=== PATIENT | female | born 1965 | race Caucasian/White ===

== ENCOUNTER → 2017-10-09 | Emergency (ER) | payer OTHER ==
[~2017-10-09] VITALS: Ht 162.6 cm; Wt 70.8 kg
[~2017-10-09] MED LIST: ESTRACE0.5 MG PO; LORATADINE10 MG PO; PREDNISONE20 MG PO; PROVENTIL HFA6.7 GM INH
--- NOTE | 2017-10-10 21:46 | EKG ---
[facility] [address] [facility] [place] [address] Signed Normal sinus rhythm Normal ECG No previous ECGs available Confirmed by MACO POSADA MD ([id number]) on 10/10/2017 9:46:14 PM Electronically Signed By: MACO POSADA MD 10/10/17 2146 PATIENT NAME: BRET OLGUIN APRIL Electrocardiogram DATE OF : 69 PHYSICIAN: MACO POSADA MD REPORT #: [id number] REPORT IS CONFIDENTIAL AND NOT TO BE RELEASED WITHOUT AUTHORIZATION
== END ==
LOC: ED 16:10
DX: J45.909 Unspecified asthma, uncomplicated (principal); R09.81 Nasal congestion; Z90.710 Acquired absence of both cervix and uterus; Z98.890 Other specified postprocedural states; Z79.899 Other long term (current) drug therapy
CPT/HCPCS: 71020; 80053; 83880; 84484; 85025; 85379; 93005; 93010; 94640; 96361; 96374; 96375; 99284; J2405; J2930; J7030

== ENCOUNTER 2019-01-24 11:48 | Day surgery (SDC) | payer OTHER ==
[~2019-01-24] VITALS: Ht 162.6 cm; Wt 76.7 kg
--- NOTE | 2019-01-24 14:00 | NUR ---
01/24/19 1400 Sheets,Rosalia 1353 PT ARRIVED TO PACU ON 4L VIA NC, PT PASSING GAS/AIR. PT DRWOSY AND EYE OPEN OFF AND ON. RESP EVEN AND UNLABORED. 1358 MD AT BEDSIDE AND PT TALKING TO MD. PT DENIES PAIN AND NAUSEA.
--- NOTE | 2019-01-24 14:53 | NUR ---
PT RETURNS TO DS ROOM 6 AFTER IVS COLONOSCOPY AFTER RECURRENT NAUSEA/VOMITING. PT RECEIVED 6.25 OF PHENERGAN IN PACU. VSS. PT ON 2 L VIA NC WITH 100% O2 SATS. PT RESTING IN BED AND DENIES FURTHER NEEDS AT THIS TIME. CALL LIGHT WITHIN REACH
--- NOTE | 2019-01-24 15:26 | NUR ---
PT TITRATED TO RA. FOLLOW UP SATS REMIAN >90%
--- NOTE | 2019-01-24 16:17 | NUR ---
1350- VSS. IV DC'D WNL PT SITS AT SIDE OF BED AND STATES SHES READY TO GO HOME. PT DRESSES SELF AND GETS INTO WHEELCHAIR. WHILE PUSHING PT OUT IN CHAIR, PT COUGHS AND DRY HEAVES INTO EMESIS BAG. RN OFFERS PT TO COME BACK TO DS BUT PT STATES "NO, IM READY TO GO HOME". PT TRANSPORTED IN WHEELCHAIR TO VEHICLE DRIVEN BY SISTER.
--- NOTE | 2019-01-25 08:01 | OR ---
[facility] [address] [place], [place] [address] Signed DATE OF OPERATION: 01/24/2019 SURGEON: Kati Sheets MD PREOPERATIVE DIAGNOSIS: Colon screening. POSTOPERATIVE DIAGNOSIS: Normal colon to cecum. PROCEDURE: Total colonoscopy to cecum. ANESTHESIA: Intravenous sedation, fentanyl 100 mcg, and Versed 5 mg. INDICATION: This 53-year-old white woman is a patient of LANDON William and has been referred for screening colonoscopy. She has no known family history of colon cancer. She is symptom free. She understands the risks of bleeding, infection, and perforation related to colonoscopy and wished to proceed. FINDINGS: The prep was excellent. Complete colonoscopy was undertaken to the cecum without question. There was no sign of polyps, diverticular formation, colitis, or cancer. DESCRIPTION OF PROCEDURE: The patient was brought to the endoscopy suite and placed in lateral decubitus position given intravenous sedation to the point of slurred speech and nystagmus. Digital rectal examination was normal. An Olympus video colonoscope was passed in the rectum and manipulated throughout the colon ultimately intubating the cecum itself. The ileocecal valve and appendiceal orifice were normal. Scope was withdrawn from that point and examination throughout undertaken showing no sign of polyps, diverticular formation, colitis, or cancer. Retroflexed view was normal. Scope was removed. The patient was taken to the recovery room in good condition. CONCLUDING DIAGNOSIS: Normal colon to cecum. Electronically Signed By: KATI SHEETS MD 01/25/19 0801 PATIENT NAME: BRET OLGUIN OPERATIVE REPORT DATE OF : 69 REPORT #: [id number] PHYSICIAN: KATI SHEETS MD PCP: BETH HERNANDEZ PA-C REPORT IS CONFIDENTIAL AND NOT TO BE RELEASED WITHOUT AUTHORIZATION [address] [place], [place] [address] Signed PLAN: Recommend repeat colonoscopy in 10 years sooner if clinically indicated. She will return to the ongoing care of Beth Hernandez. MD LESLY Pena/RANDY /[id number] cc: Beth Hernandez PA-C Copies: BETH HERNANDEZ PA-C ~ Electronically Signed By: KATI SHEETS MD 01/25/19 0801 PATIENT NAME: BRET OLGUIN SKYLAR OPERATIVE REPORT DATE OF : 69 REPORT #: [id number] PHYSICIAN: KATI SHEETS MD PCP: BETH HERNANDEZ PA-C REPORT IS CONFIDENTIAL AND NOT TO BE RELEASED WITHOUT AUTHORIZATION
== END 2019-01-24 16:00 | disposition home or self-care (01) ==
LOC: OPS 11:48 → DS 11:48 → OPS 13:00 → DS 13:00 → OPS 16:00
PROVIDERS: Surgery
PROC: 0DJD8ZZ Inspection of Lower Intestinal Tract, Via Natural or Artificial Opening Endoscopic (ICD-10-PCS; principal; 2019-01-24 13:00)
DX: Z12.11 Encounter for screening for malignant neoplasm of colon (principal); J45.909 Unspecified asthma, uncomplicated; G43.909 Migraine, unspecified, not intractable, without status migrainosus; Z79.899 Other long term (current) drug therapy; Z90.711 Acquired absence of uterus with remaining cervical stump; Z98.890 Other specified postprocedural states
CPT/HCPCS: 99153; G0500; J2250; J2550; J3010; J7120

== ENCOUNTER 2021-08-13 17:35 | Emergency (ER) | payer OTHER ==
[~2021-08-13] VITALS: Ht 162.6 cm; Wt 81.7 kg
[~2021-08-13 17:35] MED LIST changes: +IBUPROFEN600 MG PO; +OXYCODON-ACETA1 EAC2 PO; +TYLENOL EXTRA500 MG PO
--- OUTSIDE RECORDS SUMMARY | 2021-08-13 17:42 | XMS ---
PreManage Notification: BRET OLGUIN Security Network Engineering Advisor Events No recent Security Events currently on file CRITERIA MET - Group Notification CARE PROVIDERS There are no care providers on record at this time. Bright has no Care Guidelines for this patient. Kristyn VISIT COUNT (12 MO.) 1 AYESHA Conner TOTAL 1 NOTE: Visits indicate total known visits. ED/[facility] VISIT TRACKING (12 MO.) 08/13/2021 17:36 AYESHA Toure OR TYPE: Emergency COMPLAINT: - HEAD INJURY INPATIENT VISIT TRACKING (12 MO.) No inpatient visits to display in this time frame [email or web address]
[2021-08-13] MEDS ORDERED: MONTELUKAST SOD10 MG PO (18:05)
[2021-08-13] MEDS ORDERED: VITAMIN D21250 MCG PO (18:06)
[2021-08-13] MEDS ORDERED: ESTRADIOL1 MG PO (18:06)
== END 2021-08-13 19:30 | disposition home or self-care (01) ==
LOC: ED 17:35
DX: S09.90XA Unspecified injury of head, initial encounter (principal); J45.909 Unspecified asthma, uncomplicated; Z90.710 Acquired absence of both cervix and uterus; Z90.49 Acquired absence of other specified parts of digestive tract; Z79.899 Other long term (current) drug therapy; W22.09XA Striking against other stationary object, initial encounter
CPT/HCPCS: 70450; 99284-25

== ENCOUNTER 2024-06-25 17:01 | Emergency (ER) | payer OTHER ==
[~2024-06-25] VITALS: Ht 162.6 cm; Wt 79.0 kg
[~2024-06-25 17:01] MED LIST changes: +ESTRADIOL1 MG PO; +MONTELUKAST SOD10 MG PO; +VITAMIN D21250 MCG PO
--- OUTSIDE RECORDS SUMMARY | 2024-06-25 17:02 | XMS ---
PreManage Notification: BRET OLGUIN Security Vegetable Tier Events No recent Security Events currently on file CRITERIA MET - Group Notification CARE PROVIDERS There are no care providers on record at this time. Bright has no Care Guidelines for this patient. Kristyn VISIT COUNT (12 MO.) 1 AYESHA Conner TOTAL 1 NOTE: Visits indicate total known visits. ED/UCC VISIT TRACKING (12 MO.) 06/25/2024 17:01 AYESHA Toure OR TYPE: Emergency COMPLAINT: - RECTAL BLEEDING INPATIENT VISIT TRACKING (12 MO.) No inpatient visits to display in this time frame [id number]
[2024-06-25] MEDS ORDERED: LIDOCAINE HCL 4% 5 GM TUBE TOP ONE (18:00)
[2024-06-25 18:01] LABS: BASOPHILS 0.4 % (0-2); EOSINOPHILS 5.2 % (0-6); HEMATOCRIT 33.9 % (35.0-50.0); HEMOGLOBIN 11.7 g/dL (12.0-18.0); LYMPHOCYTES 34.3 % (24-44); MCH 30.1 (27-36); MCHC 34.5 g/dl (30-36); MCV 87.3 fl (81-99); MONOCYTES 9.4 % (0-12); NEUTROPHILS 50.7 % (39-80); PLATELET COUNT 279 K/uL (140-440); RBC 3.88 M/ul (4.3-5.7); RDW 12.7 (10.5-15.0)
[2024-06-25 18:15] LABS: ALBUMIN 4.1 g/dL (3.4-5.0); ALBUMIN/GLOBULIN RATIO 1.58 (1.1-2.4); ANION GAP 12.5 (7-21); BILIRUBIN, TOTAL 0.5 ng/dL (0.2-1.0); BUN/CREATININE RATIO 10.89 (6.0-28.6); CALCIUM 8.7 mg/dL (8.5-10.1); CREATININE, SERUM 1.01 mg/dL (0.55-1.02); POTASSIUM 3.5 mmol/L (3.5-5.1); PROTEIN, TOTAL 6.7 g/dL (6.4-8.2)
[2024-06-25] MEDS ORDERED: [UNRECOGNIZED DRUG - OTHER] MM (18:54)
[2024-06-25 19:08] VITALS: BP 114/63
== END 2024-06-25 19:07 | disposition home or self-care (01) ==
LOC: ED 17:01
PROVIDERS: Emergency Medicine
DX: K64.9 Unspecified hemorrhoids (principal); J45.909 Unspecified asthma, uncomplicated; Z88.5 Allergy status to narcotic agent; Z79.899 Other long term (current) drug therapy
CPT/HCPCS: 36415; 80053; 85025

== ENCOUNTER 2025-05-02 08:40 | Emergency (ER) | payer OTHER ==
[~2025-05-02] VITALS: Ht 162.6 cm; Wt 75.4 kg
[~2025-05-02 08:40] MED LIST changes: +[UNRECOGNIZED DRUG - OTHER] MM
--- OUTSIDE RECORDS SUMMARY | 2025-05-02 08:44 | XMS ---
PreManage Notification: BRET OLGUIN Security Bearing Inspector Events No recent Security Events currently on file CRITERIA MET - Group Notification CARE PROVIDERS [facility]/[place]: Multi-Specialty Current FAMILY PHONE: Unknown Bright has no Care Guidelines for this patient. Kristyn VISIT COUNT (12 MO.) 2 AYESHA Conner TOTAL 2 NOTE: Visits indicate total known visits. ED/UCC VISIT TRACKING (12 MO.) 05/02/2025 08:40 AYESHA Toure OR TYPE: Emergency COMPLAINT: - SKIN PROBLEM 06/25/2024 17:01 AYESHA Toure OR TYPE: Emergency COMPLAINT: - RECTAL BLEEDING DIAGNOSES: - Allergy status to narcotic agent - Hemorrhage of anus and rectum - Other superintendent marine oil terminal (current) drug therapy - Unspecified asthma, uncomplicated - Unspecified hemorrhoids INPATIENT VISIT TRACKING (12 MO.) No inpatient visits to display in this time frame [id number]
[2025-05-02] MEDS ORDERED: DAPTOmycin 500 MG/10 ML VIAL IV ONE ×2 (09:15→09:30)
[2025-05-02] MEDS ORDERED: ACETAMINOPHEN 500 MG TAB PO ONE (09:30)
[2025-05-02] MEDS ORDERED: KETOROLAC TROMETHAMINE 30 MG/ML VIAL IV ONE (09:30)
[2025-05-02 09:45] LABS: BASOPHILS 0 % (0.1-1.2); EOSINOPHILS 14.1 % (0.7-5.8); HEMATOCRIT 40.3 % (34.1-44.9); HEMOGLOBIN 13.5 g/dL (11.2-15.7); LYMPHOCYTES 18.9 % (19.3-51.7); MCH 29.5 PG (25.6-32.2); MCHC 33.5 g/dL (32.2-35.5); MCV 88.2 fL (79.4-94.8); MONOCYTES 10.8 % (4.7-12.5); NEUTROPHILS 56.2 % (34.0-71.1); PLATELET COUNT 227 K/uL (182-369); RBC 4.57 M/uL (3.93-5.22)
[2025-05-02] MEDS ORDERED: SODIUM CHLORIDE 0.9% 1,000 ML IV ONE (09:45)
[2025-05-02] MEDS ORDERED: DOXYCYCLINE HY100 MG PO (10:31)
[2025-05-02 11:14] VITALS: BP 112/83
== END 2025-05-02 11:14 | disposition home or self-care (01) ==
LOC: ED 08:40
PROVIDERS: Emergency Medicine
DX: A49.02 Methicillin resistant Staphylococcus aureus infection, unspecified site (principal); K12.2 Cellulitis and abscess of mouth; J45.909 Unspecified asthma, uncomplicated; Z79.899 Other long term (current) drug therapy; Z88.5 Allergy status to narcotic agent; Z88.1 Allergy status to other antibiotic agents
CPT/HCPCS: 36415; 85025; 87070; 87205; 96374; 96375; 99283-25; A9270; J0878; J1885; J7030

== ENCOUNTER 2025-09-18 07:34 | Emergency (ER) | payer OTHER ==
[~2025-09-18] VITALS: Ht 162.6 cm; Wt 73.6 kg
[~2025-09-18 07:34] MED LIST changes: +DOXYCYCLINE HY100 MG PO
--- OUTSIDE RECORDS SUMMARY | 2025-09-18 07:40 | XMS ---
PreManage Notification: BRET OLGUIN Security Outside Upholsterer Events No recent Security Events currently on file CRITERIA MET - Group Notification CARE PROVIDERS [facility]/[place]: Multi-Specialty Current FAMILY PHONE: Unknown Bright has no Care Guidelines for this patient. Kristyn VISIT COUNT (12 MO.) 2 AYESHA Conner TOTAL 2 NOTE: Visits indicate total known visits. ED/UCC VISIT TRACKING (12 MO.) 09/18/2025 07:34 AYESHA Toure OR TYPE: Emergency COMPLAINT: - VOMITING 05/02/2025 08:40 AYESHA Toure OR TYPE: Emergency COMPLAINT: - SKIN PROBLEM DIAGNOSES: - Allergy status to narcotic agent - Allergy status to other antibiotic agents - Cellulitis and abscess of mouth - Fever, unspecified - Methicillin resistant Staphylococcus aureus infection, unspecified site - Other assisted (current) drug therapy - Unspecified asthma, uncomplicated INPATIENT VISIT TRACKING (12 MO.) No inpatient visits to display in this time frame [id number]
[2025-09-18] MEDS ORDERED: SODIUM CHLORIDE 0.9% 1,000 ML IV PRN (08:15)
[2025-09-18 08:19] LABS: BASOPHILS 0.2 % (0.1-1.2); EOSINOPHILS 1.0 % (0.7-5.8); LYMPHOCYTES 16.3 % (19.3-51.7); MCH 29.9 PG (25.6-32.2); MCHC 34.6 g/dL (32.2-35.5); MCV 86.5 fL (79.4-94.8); MONOCYTES 4.7 % (4.7-12.5); NEUTROPHILS 77.6 % (34.0-71.1); RBC 4.88 M/uL (3.93-5.22)
[2025-09-18 08:35] LABS: ALT (SGPT) 17.0 U/L (14-59); AST (SGOT) 13.0 U/L (15-37); GLOMERULAR FILTRATION RATE,EST 66.0 mL/min (>60); PROTEIN, TOTAL 7.6 g/dL (6.4-8.2); UREA NITROGEN 14.0 mg/dL (7-18)
[2025-09-18] MEDS ORDERED: ONDANSETRON ODT4 MG PO (09:36)
[2025-09-18 09:51] VITALS: BP 132/76
== END 2025-09-18 09:51 | disposition home or self-care (01) ==
LOC: ED 07:34
PROVIDERS: Emergency Medicine
DX: R11.2 Nausea with vomiting, unspecified (principal); R19.7 Diarrhea, unspecified; J45.909 Unspecified asthma, uncomplicated; Z79.899 Other long term (current) drug therapy; Z88.5 Allergy status to narcotic agent; Z88.1 Allergy status to other antibiotic agents
CPT/HCPCS: 36415; 80053; 83690; 85025; 96361; 96374; 96375; 99284-25; J1790; J2405; J7030